=== PATIENT | female | born 1945 | race Caucasian/White ===

== ENCOUNTER → 2017-02-11 | Day surgery (SDC) | payer MEDICARE, OTHER ==
[~2017-02-11] VITALS: Ht 167.6 cm; Wt 67.7 kg
[~2017-02-11] MED LIST: AZELASTINE137 MCG/0. NOSE; CALTRATE 600 WI1 TAB PO; CELEXA20 MG PO; DEXILANT60 MG PO; EVISTA60 MG PO; FENOFIBRATE134 MG PO; FISH OIL 1,0001 EAC3 PO; FLONASE 50 MCG/16 GM NOSE; GLUCOSAMINE S1000 M1 PO; HYZAAR 50-12.51 EACH PO; POTASSIUM99 M1 PO; SINGULAIR10 MG PO; TAB-A-VITE1 EACH PO; VITAMIN D35000 UNI1 PO; WELLBUTRIN XL150 M1 PO; ZOCOR40 MG PO
--- NOTE | ~2017-02-11 | OR ---
PATIENT'S NAME: MARY ALFONSO [facility] AGE: 71 Y [address] 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 INDICATION: Long-standing GERD. MEDICATIONS: Please see anesthesiology record for details. CONSENT: The risks/benefits/alternatives were discussed, and the patient or her power of commercial litigation attorney expressed understanding and agreed to proceed. Informed consent was obtained and placed in the chart. Time-out was completed prior to starting the procedure. DESCRIPTION OF PROCEDURE: The patient was placed in the left lateral decubitus position. One-lead EKG monitoring was used along with intermittent blood pressure monitoring and pulse oximetry. Bite block was placed in the patient's mouth. The above medications were given and titrated to response. Once adequate sedation was completed, the endoscope was passed through the patient's mouth into the posterior oropharynx. The endoscope was then passed into the esophagus, stomach, and duodenal bulb. The duodenum was examined through the third portion. The endoscope was then withdrawn into the stomach. In the stomach, retroflexion was completed. The scope was then straightened and withdrawn from the patient. The patient tolerated the procedure well. There were no complications. SUMMARY OF FINDINGS: 1. Irregular Z-line, status post biopsies to evaluate for Fonseca esophagus. 2. Small hiatal hernia. 3. Normal stomach. 4. Normal duodenum. ASSESSMENT AND PLAN: Gastroesophageal reflux disease: The patient had an irregular Z-line. Biopsies were taken to evaluate for Fonseca esophagus. If there is Fonseca's with no dysplasia, then would recommend esophagogastroduodenoscopy in 3 years. However, if there is no evidence of Fonseca's, no need for further surveillance endoscopy at this time. PATIENT'S NAME: MARY ALFONSO [facility] AGE: 71 Y [address] ROOM: [place] [address] LOCATION: GEND ADMIT DATE: 02/11/2017 OR/Procedure Report DISCHARGE DATE: FAMILY PHYSICIAN: Dolly Gaviria MD ATTENDING PHYSICIAN: Dolly Gaviria J DANIEL FRANK MD JRT/modl /[id number] d: 02/11/17 1211 t: 02/13/17 1358, OPERATIVE SUMMARY
--- NOTE | ~2017-02-11 | OR ---
PATIENT'S NAME: MARY ALFONSO [facility] AGE: 71 Y [address] 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 INDICATION: Surveillance exam, history of polyps. MEDICATIONS: Please see anesthesiology record for details. CONSENT: The risks/benefits/alternatives were discussed, and the patient or her power of patent attorney expressed understanding and agreed to proceed. Informed consent was obtained and placed on the chart. Time-out was completed prior to starting the procedure. DESCRIPTION OF PROCEDURE: The patient was placed in the left lateral decubitus position. One lead EKG monitoring was used along with intermittent blood pressure monitoring and pulse oximetry. The above medications were given and titrated to response. Once adequate sedation was completed, rectal exam was performed. The colonoscope was then passed through the rectum, into the sigmoid colon. The scope was then passed through the descending, transverse, and ascending colon. The scope was then passed into the cecum. The cecum was identified by the ileocecal valve and appendiceal orifice. The scope was then withdrawn. On withdrawal, the mucosa of the colon was examined. In the rectum, retroflexion was completed. The scope was then withdrawn from the patient. The patient tolerated the procedure well. There were no complications. SUMMARY OF FINDINGS: 1. A 7 mm sessile polyp at the splenic flexure. It was removed using snare with cautery in 2 pieces. 2. A 4 mm sessile polyp in the transverse colon, removed using snare without cautery. 3. Rectal polyp, 4 mm, sessile, removed using snare without cautery. 4. Internal hemorrhoids, small, nonbleeding. 5. Diverticulosis, small, mild, mainly in the sigmoid colon. ASSESSMENT AND PLAN: Surveillance colonoscopy: The patient did have 3 polyps removed on exam today. Would recommend colonoscopy in 3 to 5 years. If all polyps are tubular adenoma, then would follow up in 3 years; however, if only PATIENT'S NAME: MARY ALFONSO [facility] AGE: 71 Y [address] ROOM: [place] [address] LOCATION: GEND ADMIT DATE: 02/11/2017 OR/Procedure Report DISCHARGE DATE: FAMILY PHYSICIAN: Dolly Gaviria MD ATTENDING PHYSICIAN: Dolly Gaviria 1 or 2 are tubular adenoma, she can follow up in 5 years. J MD ZELALEM MULLER/modl /[id number] d: 02/11/17 1215 t: 02/13/17 1401, OPERATIVE SUMMARY
== END | disposition disaster alternative care site (69) ==
LOC: GPOC 02-06 10:00 → GEND 07:57 → GPOC 08:00
PROC: 0DB48ZX Excision of Esophagogastric Junction, Via Natural or Artificial Opening Endoscopic, Diagnostic (ICD-10-PCS; principal; 2017-02-11)
PROC: 0DBL8ZZ Excision of Transverse Colon, Via Natural or Artificial Opening Endoscopic (ICD-10-PCS; 2017-02-11)
PROC: 0DBP8ZZ Excision of Rectum, Via Natural or Artificial Opening Endoscopic (ICD-10-PCS; 2017-02-11)
DX: Z12.11 Encounter for screening for malignant neoplasm of colon (principal); D12.3 Benign neoplasm of transverse colon; D12.8 Benign neoplasm of rectum; K21.9 Gastro-esophageal reflux disease without esophagitis; K31.89 Other diseases of stomach and duodenum; K44.9 Diaphragmatic hernia without obstruction or gangrene; E78.5 Hyperlipidemia, unspecified; F32.9 Major depressive disorder, single episode, unspecified; I10 Essential (primary) hypertension; M81.0 Age-related osteoporosis without current pathological fracture; Z87.891 Personal history of nicotine dependence; Z86.010 Personal history of colon polyps; Z98.890 Other specified postprocedural states; Z98.51 Tubal ligation status; Z79.899 Other long term (current) drug therapy
CPT/HCPCS: J7030